=== PATIENT | female | born 1980 | race Native Hawaiian/Other Pacific Islander ===

== ENCOUNTER 2018-06-05 08:56 | Outpatient (CLI) | payer OTHER | END 2018-06-05 23:21 | disposition home or self-care (01) | LOC: RAD 08:56 | DX: M25.571 Pain in right ankle and joints of right foot (principal) ==

== ENCOUNTER 2019-08-20 10:27 | Outpatient (CLI) | payer OTHER | END 2019-08-20 20:17 | disposition home or self-care (01) | LOC: LAB 10:27 | DX: R19.7 Diarrhea, unspecified (principal) | CPT/HCPCS: 82272; 83630; 87015; 87045; 87324; 87328; 87329; 87449; 87899 ==

== ENCOUNTER 2021-11-17 20:03 | Emergency (ER) | payer OTHER ==
[~2021-11-17] VITALS: Ht 162.6 cm; Wt 74.8 kg
[2021-11-17 20:45] VITALS: BP 120/88; TEMP 98.6
== END 2021-11-17 20:45 | disposition home or self-care (01) ==
LOC: ED 20:03
DX: N75.1 Abscess of Bartholin's gland (principal)
CPT/HCPCS: 99282

== ENCOUNTER 2022-09-21 22:14 | Emergency (ER) | payer OTHER ==
[~2022-09-21] VITALS: Ht 160 cm; Wt 71.7 kg
[2022-09-21 23:19] LABS: PLATELET COUNT 229 K/uL (152-353)
[2022-09-21 23:43] LABS: POTASSIUM 3.8 mmol/L (3.6-5.2)
[2022-09-22 01:32] VITALS: BP 123/70; TEMP 98.6
== END 2022-09-22 01:32 | disposition home or self-care (01) ==
LOC: ED 22:14
PROVIDERS: Family Medicine
DX: N13.2 Hydronephrosis with renal and ureteral calculous obstruction (principal)
CPT/HCPCS: 36415; 80053; 80307; 81000; 85027; 96360; 96361; 96374; 96375; 99284; J1885; J2405

== ENCOUNTER 2023-06-01 12:50 | Outpatient (CLI) | payer OTHER | END 2023-06-01 19:08 | disposition home or self-care (01) | LOC: US 12:50 | PROVIDERS: ATTEND Internal Medicine | DX: N61.0 Mastitis without abscess (principal) ==